=== PATIENT | female | born 1980 | race African-American/Black ===

== ENCOUNTER 2019-10-09 13:48 | Emergency (ER) | payer OTHER, SELFPAY ==
--- NOTE | ~2019-10-09 | CT_ITS ---
EXAMINATION: CT abdomen pelvis w con DATE: 10/09/2019 15:50 INDICATION: Mid abdominal pain. History history of gastric bypass surgery. TECHNIQUE: Computed tomography (CT) of the abdomen and pelvis was performed with 100 cc Omnipaque 350 intravenous contrast. The dose-length product was 747.05 mGy-cm. Automated exposure control and iter ative reconstruction technique were employed. COMPARISON: No prior studies for comparison. FINDINGS: Lung bases unremarkable. Heart size normal. No significant pleural or pericardial effusion. There are surgical changes of gastric bypass surgery. There is abnormal thickening of the gastric wa ll and adjacent small bowel loops with surrounding mesenteric fluid in the left upper abdomen. Fatty infiltration of the liver near the falciform ligament. The spleen, pancreas, adrenal glands and kidneys are unremarkable. No bowel obstruction is seen. There is free fluid in the pelvis. No lympha denopathy. No acute osseous abnormality. No free air. IMPRESSION: 1. Abnormal thickening of the stomach and proximal small bowel with small amount of mesenteric fluid surrounding the small bowel. Considerations include gastroenteritis and sequela of pancreatitis. Reviewed, dictated and finalized at location A. IMPRESSION: 1. Abnormal thickening of the stomach and proximal small bowel with small amoun t of mesenteric fluid surrounding the small bowel. Considerations include gastr oenteritis and sequela of pancreatitis.
[2019-10-09 13:49] VITALS: BP 156/104; PULSE 77; RESP 17; TEMP 36.8; O2SAT 100
[2019-10-09 14:19] LABS: Basophils Percent Auto 0.3 % (0.2-1.2); Eosinophils Absolute Auto 0.2 K/mm3 (0-0.3); Eosinophils Percent Auto 2.3 % (0-4.4); Hematocrit 44.2 % (37.0-47.0); Hemoglobin 14.5 g/dL (12.0-15.0); Immature Granulocyte Absolute 0.02 K/mm3 (0.00-0.031); Immature Granulocyte Percent A 0.3 % (0-0.5); Lymphocytes Absolute Auto 2.52 K/mm3 (0.9-3.2); Lymphocytes Percent Auto 34.1 % (18.3-44.2); Mean Corpuscular HGB Conc 32.8 g/dl (32-36); Mean Corpuscular Hemoglobin 27.5 pg (26-34); Mean Corpuscular Volume 83.7 fl (80-100); Mean Platelet Volume 10.1 fl (7.4-10.4); Monocytes Absolute Auto 0.8 K/mm3 (0.1-0.6); Monocytes Percent Auto 11.1 % (2.6-8.5); Neutrophils Absolute Auto 3.8 K/mm3 (1.3-6.7); Neutrophils Percent Auto 51.9 % (45.5-73.1); Platelet Count Result 340 k/mm3 (150-375); Red Blood Count 5.28 M/mm3 (4.2-5.4); Red Cell Distribution Width 14.1 % (11.5-14.5); White Blood Count 7.4 K/mm3 (4.5-10.0)
[2019-10-09 14:24] LABS: Add Urine Microscopic? YES; Appearance Urine Clear (Clear); Bacteria Urine Trace /hpf; Bilirubin Urine Negative (Negative); Blood Urine 1+ (Negative); Color Urine Yellow (Yellow); Glucose Urine UA Negative (Negative); Ketones Urine Trace mg/dL (Negative); Leukocyte Esterase Ur Negative LEU/UL (Negative); Mucus Urine Heavy /lpf; Nitrate Urine Negative (Negative); Protein Urine Negative (Negative); RBC Urine 0-2 /hpf (0-2); Specific Grav Ur 1.027 (1.001-1.035); Squamous Epithelial Cell Urine Many /hpf (Few); WBC Urine 0-3 /hpf
[2019-10-09 14:30] LABS: Alanine Aminotransferase 19 U/L (4-35); Albumin Level 4.2 g/dL (3.5-5.1); Alkaline Phosphatase 77 U/L (38-126); Aspartate Amino Transferase 29 U/L (14-36); Bilirubin,Total 0.9 mg/dL (0.2-1.3); Blood Urea Nitrogen 9 mg/dL (7-17); Carbon Dioxide 29 mmol/L (22-30); Chloride 100 mmol/L (98-107); Estimated CRCL calculation 102 ml/min; Estimated Glomerular Filt Rate > 60; Glucose 105 mg/dL (65-105); Lipase 92 U/L (23-300); Potassium 3.7 mmol/L (3.4-5.0); Sodium 135 mmol/L (137-145)
[2019-10-09] MEDS: ONDANSETRON INJ 4 MG/2 ML VIAL IV PUSH (15:37)
[2019-10-09] MEDS: FAMOTIDINE 20 MG/2 ML VIAL IV PUSH (15:37)
[2019-10-09] MEDS: SODIUM CHLORIDE 0.9% IV 1,000 ML 999 ML IV CONT ×2 (15:37→17:02)
--- NOTE | 2019-10-09 16:00 | ED.ABDPAIN ---
HPI - Abdominal Pain General Chief Complaint: Abdominal Pain Stated Complaint: abdominal pain x 1 day Time Seen by Provider: 10/09/19 14:17 Source: patient Mode of arrival: ambulatory Limitations: no limitations History of Present Illness HPI narrative: Patient is a 39-year-old female who notes patient developed generalized abdominal pain. Patient notes that she has been intoxicated Thursday felt hung over Thursday and has since had abdominal pain with nausea that has not improved has not taken anything for symptoms denies vomiting diarrhea rectal bleeding or melena. Patient on arrival to emergency department is in no distress presents per private vehicle. Related Data Allergies Allergy/AdvReac Type Severity Reaction Status Date / Time No Known Allergies Allergy Verified 10/09/19 13:51 Review of Systems Review of Systems: All systems reviewed & are unremarkable except as noted in HPI and below PMFSH Past Medical History Medical History (Updated 10/09/19 @ 18:25 by Gildardo Holliday PA-C) Obesity Surgical History Surgical History Hx of gastric bypass Social History Social History (Updated 10/09/19 @ 16:03 by Gildardo Holliday PA-C) Smoking status: Current every day smoker Gender identity (if verbalized by the patient): Female Exam Narrative: Exam Narrative: GENERAL: Well-appearing, well-nourished, and in no acute distress. HEAD: Normocephalic, atraumatic. EYES: PERRLA and EOMI. ENT: Nares clear, no rhinorrhea or epistaxis. Mucous membranes moist. CHEST: Clear to auscultation. No respiratory distress. No wheezes rales or rhonchi HEART: Regular rate and rhythm. No murmur heard. Normal peripheral pulses. ABDOMEN: Soft, generalized tenderness with voluntary guarding, nondistended EXTREMITIES: Normal range of motion. No edema. SKIN: Warm, dry, no rash. NEURO: No focal deficits. Alert and oriented x3. PSYCH: Normal mood and affect. Course Course Emergency Course: Patient in the room at this is resting comfortably noted that she felt better with the GI cocktail which could suggest enteritis definitely concerning for inflammation of the stomach could be early pancreatitis as seen on the exam lipase is normal patient is tolerating p.o. intake is afebrile nontoxic-appearing no distress. Patient agreeing to follow-up as instructed does feel comfortable with going home after interventions today did improve her condition Vital Signs Vital signs: Vital Signs Temperature 98.2 F 10/09/19 13:49 Pulse Rate 77 10/09/19 13:49 Respiratory Rate 17 10/09/19 13:49 Blood Pressure 156/104 H 10/09/19 13:49 Pulse Oximetry 100 10/09/19 13:49 Temperature 98.2 F 10/09/19 13:49 Pulse Rate 77 10/09/19 13:49 Respiratory Rate 17 10/09/19 13:49 Blood Pressure 156/104 H 10/09/19 13:49 Pulse Oximetry 100 10/09/19 13:49 MDM - Abdominal Pain MDM Narrative Medical decision making narrative: Patient in the room at this time feeling better with interventions and medications felt appropriate for discharge home. Patient is afebrile nontoxic-appearing no distress and felt appropriate for discharge home. Patient agreeing to follow-up with primary care and gastroenterology unclear as to whether it could be gastritis No early pancreatitis felt more likely to be gastritis given the presentation. Patient provided with reasons to return She feels comfortable going home. . Differential Diagnosis Differential diagnosis: Likely abdominal pain, acute appendicitis, calculus of kidney, constipation, diverticulitis, endometriosis, gastroenteritis, pancreatitis and small bowel obstruction Lab Data Result diagrams: 10/09/19 14:08 10/09/19 14:08 Labs: Lab Results 10/09/19 10/09/19 10/09/19 Range/Units 14:08 14:08 14:08 WBC 7.4 (4.5-10.0) K/mm3 RBC 5.28 (4.2-5.4) M/mm3 Hgb 14.5 (12.0-15.0) g/dL Hct 44.2 (37.0-
[2019-10-09] MEDS: HYOSCYAMINE SULFATE 0.125 MG TABLET PO (17:02)
[2019-10-09] MEDS: BELLADONNA ALK/PHENOB ELIX 10 ML, MAG HYDROX/ALUMINUM HYD/SIMETH 30 ML, LIDOCAINE HCL 2... PO (17:40)
[2019-10-09 19:37] VITALS: BP 132/70; PULSE 77; RESP 18; O2SAT 98
== END 2019-10-09 19:51 | disposition home or self-care (01) ==
PROVIDERS: Emergency Provider Emergency Medicine
DX: R10.84 Generalized abdominal pain (principal); E66.9 Obesity, unspecified; Z68.26 Body mass index [BMI] 26.0-26.9, adult; Z98.84 Bariatric surgery status; F17.200 Nicotine dependence, unspecified, uncomplicated; R93.5 Abnormal findings on diagnostic imaging of other abdominal regions, including retroperitoneum
CPT/HCPCS: 36415; 74177; 80053; 81001; 81025; 83690; 85025; 96361; 96365; 96375; 99284; A9270; J0131; J2405; J7030; Q9967